=== PATIENT | female | born 1990 | race Caucasian/White ===

== ENCOUNTER 2018-08-06 16:40 | Inpatient (IN) | payer BC ==
[~2018-08-06] VITALS: Ht 157.5 cm; Wt 83.5 kg
[2018-08-06] MEDS: LR 1,000 ML IV SCH ×2 (16:44→19:10)
[2018-08-06] MEDS ORDERED: LR 1,000 ML IV SCH (17:18)
[2018-08-06] MEDS ORDERED: CEFAZOLIN 2 GM IVPB PREMIX 50 ML IV ONE (17:30)
[2018-08-06 17:38] LABS: BASOPHILS % (AUTO) 0.4 % (0.0-2.0); EOSINOPHILS # (AUTO) 0.1 K/uL (0.0-0.4); EOSINOPHILS % (AUTO) 0.7 % (0.0-4.0); HEMATOCRIT 36.3 % (36-48); HEMOGLOBIN 12.4 g/dL (12.0-16.0); LYMPHOCYTES # (AUTO) 2.1 K/uL (1.0-5.5); LYMPHOCYTES % (AUTO) 20.2 % (20.5-51.5); MEAN CORPUSCULAR HEMOGLOBIN 31 pg (27-31); MEAN CORPUSCULAR HGB CONC 34 % (32-36); MEAN CORPUSCULAR VOLUME 92 fL (79.0-98.0); MONOCYTES # (AUTO) 0.8 K/uL (0.0-1.0); MONOCYTES % (AUTO) 8.1 % (1.7-9.3); NEUTROPHILS # (AUTO) 7.4 K/uL (1.8-7.7); NEUTROPHILS % (AUTO) 70.6 % (40.0-70.0); PLATELET COUNT (AUTO) 183 K/uL (130-430); RED BLOOD CELL COUNT(AUTO) 3.94 MIL/uL (4.2-6.2); RED CELL DISTRIBUTION WIDTH 12.8 % (9.0-15.0); WHITE BLOOD COUNT (AUTO) 10.4 K/uL (4.8-10.8)
[2018-08-06 17:59] LABS: CALCIUM 8.8 mg/dL (8.4-11.0); CREATININE 0.92 mg/dL (0.55-1.30); POTASSIUM 4.1 mmol/L (3.5-5.1)
[2018-08-06 18:04] LABS: ALBUMIN 2.4 g/dL (3.4-4.8); TOTAL BILIRUBIN 0.2 mg/dL (0.0-1.0)
[2018-08-06 18:27] LABS: BILIRUBIN,URINE NEGATIVE (NEGATIVE); CLARITY/URINE CLEAR (CLEAR); COLOR,URINE YELLOW (YELLOW); GLUCOSE,URINE NEGATIVE (NEGATIVE); KETONES,URINE NEGATIVE (NEGATIVE); LEUKOCYTE ESTERASE ,URINE NEGATIVE (NEGATIVE); NITRITE, URINE NEGATIVE (NEGATIVE); PROTEIN URINE 2+ (NEGATIVE); UROBILINOGEN,URINE 0.2 (0.2-1.0)
[2018-08-06 18:28] LABS: BLOOD, URINE TRACE (NEGATIVE)
[2018-08-06] MEDS ORDERED: KETOROLAC TROMETHAMINE 60 MG/2 ML VIAL IM PRN (18:30)
[2018-08-06] MEDS ORDERED: ONDANSETRON HCL 4 MG/2 ML VIAL IVP PRN (18:30)
[2018-08-06] MEDS ORDERED: DIPHENHYDRAMINE INJ 50 MG/ML VIAL IVP PRN (18:30)
[2018-08-06] MEDS ORDERED: MORPHINE SULFATE 10MG/10ML PF AMP SP SCH (18:30)
[2018-08-06] MEDS ORDERED: fentaNYL CITRATE/PF 100 MCG/2 ML AMP IVP PRN ×2 (18:30)
[2018-08-06] MEDS ORDERED: NALOXONE HCL 0.4 MG/ML AMP (NARCAN) IVP PRN ×2 (18:30)
[2018-08-06] MEDS ORDERED: NALBUPHINE HCL 10 MG/ML AMP IVP PRN (18:30)
[2018-08-06 18:34] LABS: BACTERIA,URINE MODERATE /HPF (None Seen); RBC,URINE 0-3 /HPF (0-3); WBC,URINE 0-3 /HPF (0-3)
[2018-08-06] MEDS ORDERED: OXYTOCIN/0.9 % SODIUM CHLORIDE 1,000 ML IV ONE (18:48)
[2018-08-06] MEDS ORDERED: ANUSOL 1 EA SUPP.RECT (PREPARATION H) RC PRN (19:00)
[2018-08-06] MEDS ORDERED: SENNOSIDES/DOCUSATE SODIUM 1 TAB TABLET(SENOKOT-S) PO PRN (19:00)
[2018-08-06] MEDS ORDERED: MEASLES,MUMPS&RUBELLA VACC/PF 12500 UNIT/0.5 ML VIAL SUBQ PRN (19:00)
[2018-08-06] MEDS ORDERED: BISACODYL 10 MG/SUPPOSITORY RC PRN (19:00)
[2018-08-06] MEDS ORDERED: OXYCODONE/ACETAMINOPHEN 5-325 TABLET PO PRN (19:00)
[2018-08-06] MEDS ORDERED: RHO(D) IMMUNE GLOBULIN/MALTOSE 1500 UNITS/1.3 ML (WINHRO) IM PRN (19:00)
[2018-08-06] MEDS ORDERED: MAGNESIUM SULFATE IN WATER 100 ML IV ONE (19:00)
[2018-08-06] MEDS ORDERED: LANOLIN 7 GM OINT. TP PRN (19:00)
[2018-08-06] MEDS ORDERED: DIPH-TET-PERTUS Vaccine 0.5 ML VIAL (ADACEL) I.M. PRN (19:00)
[2018-08-06] MEDS: MAGNESIUM SULFATE IN WATER 500 ML IV PRN ×2 (19:25→19:48)
[2018-08-06] MEDS ORDERED: MEPERIDINE HCL/PF 25 MG/ML DISP.SYRIN ONE (19:48)
[2018-08-06] MEDS ORDERED: hydrALAZINE HCL 20 MG/ML VIAL ONE (20:10)
[2018-08-06] MEDS ORDERED: hydrALAZINE HCL 20 MG/ML VIAL IVP ONE (20:15)
[2018-08-06] MEDS ORDERED: TEMAZEPAM 15 MG CAPSULE PO PRN (21:00)
[2018-08-07] MEDS ORDERED: hydrALAZINE HCL 20 MG/ML VIAL ONE (03:13)
[2018-08-07] MEDS ORDERED: hydrALAZINE HCL 20 MG/ML VIAL IVP PRN (03:15)
[2018-08-07] MEDS: MAGNESIUM SULFATE IN WATER 500 ML IV PRN ×2 (06:21→16:43)
[2018-08-07 07:08] LABS: BASOPHILS % (AUTO) 0.1 % (0.0-2.0); EOSINOPHILS % (AUTO) 0.1 % (0.0-4.0); HEMATOCRIT 36.7 % (36-48); HEMOGLOBIN 12.9 g/dL (12.0-16.0); LYMPHOCYTES # (AUTO) 1.5 K/uL (1.0-5.5); LYMPHOCYTES % (AUTO) 8.5 % (20.5-51.5); MEAN CORPUSCULAR HEMOGLOBIN 32 pg (27-31); MEAN CORPUSCULAR HGB CONC 35 % (32-36); MEAN CORPUSCULAR VOLUME 92 fL (79.0-98.0); MONOCYTES # (AUTO) 0.7 K/uL (0.0-1.0); MONOCYTES % (AUTO) 4.2 % (1.7-9.3); NEUTROPHILS # (AUTO) 15.2 K/uL (1.8-7.7); NEUTROPHILS % (AUTO) 87.1 % (40.0-70.0); PLATELET COUNT (AUTO) 221 K/uL (130-430); RED BLOOD CELL COUNT(AUTO) 4.01 MIL/uL (4.2-6.2); RED CELL DISTRIBUTION WIDTH 13.3 % (9.0-15.0); WHITE BLOOD COUNT (AUTO) 17.4 K/uL (4.8-10.8)
[2018-08-07 07:21] LABS: CALCIUM 8.1 mg/dL (8.4-11.0); CREATININE 0.72 mg/dL (0.55-1.30); POTASSIUM 4.6 mmol/L (3.5-5.1)
[2018-08-07 07:29] LABS: ALBUMIN 2.1 g/dL (3.4-4.8); TOTAL BILIRUBIN 0.2 mg/dL (0.0-1.0)
[2018-08-07 09:29] VITALS: BP_SYST 221
[2018-08-07] MEDS ORDERED: LABETALOL 100 MG/ 20ML VIAL IVP ONE (09:30)
[2018-08-07] MEDS: OXYCODONE/ACETAMINOPHEN 5-325 TABLET PO PRN ×2 (14:10→18:51)
[2018-08-07] MEDS ORDERED: NIFEDIPINE 30 MG TAB.ER.24 PO ONE (15:30)
[2018-08-07] MEDS: IBUPROFEN 600 MG TABLET PO SCH (18:14)
[2018-08-07] MEDS: DOCUSATE SODIUM 100 MG CAPSULE PO PRN (18:51)
[2018-08-07] MEDS ORDERED: hydrALAZINE HCL 20 MG/ML VIAL IVP ONE (19:30)
[2018-08-07] MEDS ORDERED: NIFEdipine 10 MG CAPSULE PO ONE (21:42)
[2018-08-07] MEDS: NIFEDIPINE 30 MG TAB.ER.24 PO SCH (22:00)
[2018-08-08] MEDS: SIMETHICONE 80 MG TAB.CHEW PO PRN ×4 (02:41→21:10)
[2018-08-08] MEDS: DOCUSATE SODIUM 100 MG CAPSULE PO PRN ×3 (02:42→21:10)
[2018-08-08] MEDS: IBUPROFEN 600 MG TABLET PO SCH ×5 (05:53→23:43)
[2018-08-08] MEDS: OXYCODONE/ACETAMINOPHEN 5-325 TABLET PO PRN ×2 (08:27→12:31)
[2018-08-08] MEDS: NIFEDIPINE 30 MG TAB.ER.24 PO SCH ×2 (08:33→21:10)
[2018-08-08] MEDS ORDERED: LR 1,000 ML IV.SOLN IV ONE (17:30)
[2018-08-08] MEDS ORDERED: WATER FOR IRRIGATION,STERILE 1,000 ML IRRIG.SOLN IR ONE (17:30)
[2018-08-08] MEDS ORDERED: MORPHINE SULFATE 10MG/10ML PF AMP EP ONE (17:30)
[2018-08-08] MEDS ORDERED: ONDANSETRON HCL 4 MG/2 ML VIAL IVP ONE (17:30)
[2018-08-09] MEDS: IBUPROFEN 600 MG TABLET PO SCH ×2 (05:41→17:51)
[2018-08-09] MEDS: NIFEDIPINE 30 MG TAB.ER.24 PO SCH ×2 (09:35→21:24)
[2018-08-10] MEDS: IBUPROFEN 600 MG TABLET PO SCH ×3 (06:20→12:13)
[2018-08-10] MEDS ORDERED: NIFEDIPINE 60 MG TABLET.SA (PROCARDIA XL 60 MG) PO STA (07:10)
[2018-08-10] MEDS: DOCUSATE SODIUM 100 MG CAPSULE PO PRN (12:13)
== END 2018-08-10 17:34 | disposition home or self-care (01) | DRG 785 ==
LOC: SPU 16:40
PROVIDERS: ADMIT Obstetrics & Gynecology; ATTEND Obstetrics & Gynecology
PROC: 0UB60ZZ Excision of Left Fallopian Tube, Open Approach (ICD-10-PCS; 2018-08-06)
PROC: 10D00Z1 Extraction of Products of Conception, Low, Open Approach (ICD-10-PCS; principal; 2018-08-06 17:15)
DX: O14.14 Severe pre-eclampsia complicating childbirth (principal); N83.8 Other noninflammatory disorders of ovary, fallopian tube and broad ligament; O34.83 Maternal care for other abnormalities of pelvic organs, third trimester; N88.8 Other specified noninflammatory disorders of cervix uteri; Z37.0 Single live birth; Z3A.37 37 weeks gestation of pregnancy
CPT/HCPCS: 36415; 80053; 81000-TC; 85025; 86592; 86886; 86900; 86901; 87086; 88305; J0360; J0690; J2175; J2274; J2405; J2590; J3475; J3490; J7120